=== PATIENT | female | born 1985 | race African-American/Black ===

== ENCOUNTER 2019-07-06 16:48 | Emergency (ER) | payer MEDICAID ==
[~2019-07-06] VITALS: Ht 157.5 cm; Wt 91.5 kg
[2019-07-06 16:51] VITALS: BP 130/66
--- NOTE | 2019-07-06 16:54 | NUR ---
mask applied in triage
[2019-07-06] MEDS ORDERED: DEXAMETHASONE 4 MG TABLET ONE (17:10)
[2019-07-06] MEDS ORDERED: IBUPROFEN 600 MG TABLET ONE ×2 (17:11→17:13)
[2019-07-06] MEDS ORDERED: DEXAMETHASONE 4 MG TABLET PO STA (17:13)
[2019-07-06] MEDS ORDERED: IBUPROFEN 200 MG TABLET PO ONE (17:30)
[2019-07-06] MEDS ORDERED: IBUPROFEN 600 MG TABLET PO ONE (17:30)
[2019-07-06 17:44] LABS: RAPID INFLUENZA A Negative (Negative); RAPID INFLUENZA B Negative (Negative)
== END 2019-07-06 18:02 | disposition home or self-care (01) ==
LOC: ED 17:00
DX: J02.0 Streptococcal pharyngitis (principal)
CPT/HCPCS: 87400; 99283